=== PATIENT | female | born 1980 | race Caucasian/White ===

== ENCOUNTER 2019-10-07 13:13 | Emergency (ER) | payer SELFPAY ==
[2019-10-07 13:15] VITALS: BP 139/90; PULSE 111; RESP 15; TEMP 37.1; O2SAT 98; BMI 30.6
--- NOTE | 2019-10-07 13:35 | ED.DCSUM_ITS ---
History of Present Illness Chief Complaint: Abscess Informant: Patient Onset: Days Context: Gradual Onset Current Severity: Moderate Maximum Severity: Moderate Narrative: Patient presents with multiple small abscesses to her right axilla. There is a single abscess on her right side of her back that drained last evening. Patient denies fever or chills. 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 Past Medical History - Allergies and Home Meds Allergies/Adverse Reactions: Allergies No Known Allergies Allergy (Verified 10/07/19 13:19) Primary Care Physician: Care Physician,No Primary [Primary Care Provider] - Prior records reviewed: Yes Smoking Status: Current every day smoker Review of Systems General: Denies: Chills, Fever Eyes: Denies: Visual changes - bilaterally Cardiovascular: Denies: Chest pain Respiratory: Denies: Dyspnea, Cough Gastrointestinal: Denies: Abdominal pain, Nausea, Vomiting, Diarrhea Genitourinary: Denies: Dysuria Musculoskeletal: Denies: Arthralgias, Neck pain, Back pain Skin: Reports: Abscess Hematologic: Reports: Easy bruising Allergy: Reports: Uticaria Physical Exam Vital Signs/Narrative: Vital Signs Temp Pulse Resp BP Pulse Ox 10/07/19 13:15 98.7 F 111 H 15 139/90 H 98 Inital Vital Signs reviewed: Yes General: Well nourished, Well developed Head: Normocephalic ENT: Moist mucous membranes Neck: Supple Cardiovascular: Regular rate, Regular rhythm Respiratory: No distress Skin: - - Single cutaneous abscess to the right scapular region recently drained. No surrounding cellulitis. Patient has approximately 5 small, diameter approximately 4 mm, abscesses to the right axilla. No cellulitis. No fluctuance. Neurological: Alert, Oriented x3 Psychological: Normal affect Diagnostic/Tx/Re-eval - Medical Decision Making I advised the patient at this time there is no abscesses amenable to draining. She was started on oral antibiotics. She is encouraged use warm compresses. ED Disposition - Plan for ED Patient: Disposition: Home or Assisted Living Diagnosis: Cutaneous abscess of axilla Instructions: ABSCESS, Antiobiotic Treatment Only Prescriptions: Smz/Tmp Ds [Bactrim Ds] 1 tab PO BID #20 tab Transmission Status: Pending to [facility] Cephalexin [Keflex] 500 mg PO Q6 #40 cap Transmission Status: Pending to [facility] Referrals: Norris Mariscal MD [STAFF PHYSICIAN] - As Needed Matt Tolbert [[facility]] - 1-2 Weeks
[2019-10-07] MEDS: Smz/Tmp Ds Tablet 1 TABLET PO (13:42)
[2019-10-07] MEDS: Cephalexin 250 MG Capsule 500 MG PO (13:42)
== END 2019-10-07 13:59 | disposition home or self-care (01) ==
LOC: ED 13:41
PROVIDERS: Emergency Provider Emergency Medicine
DX: L02.411 Cutaneous abscess of right axilla (principal); F17.200 Nicotine dependence, unspecified, uncomplicated
CPT/HCPCS: 99283

== ENCOUNTER 2019-11-07 14:45 | Emergency (ER) | payer SELFPAY ==
[2019-11-07 14:48] VITALS: BP 117/84; PULSE 90; RESP 17; TEMP 36.8; O2SAT 100; BMI 28.8
--- NOTE | 2019-11-07 15:19 | ED.VISSUMM ---
- ER Visit Summary Date of Service: 11/07/19 Chief Complaint: Cough History of Present Illness: The patient is a 39 F who presents with cough and congestion that is been getting worse over the past 2 days. Patient admits to fevers and chills. Patient states her fever was up to 102 at home. Patient states she has general myalgias and aching in her back. Patient also admits to a headache. Patient also admits to some nausea, vomiting, and diarrhea. Patient denies any sputum production. Patient states she feels like her heart is racing at times. Patient denies any chest pain. Physical Examination: Vital signs are stable. Patient is afebrile. Patient is in no acute distress. Oral mucosa is pink and moist. Neck is supple. Trachea is midline. There is no JVD. Heart was regular rate and rhythm. Lungs showed diffuse rhonchi. There is good respiratory effort. Abdomen is soft. Bowel sounds are normal. There is no tenderness. Cranial nerves II through XII are intact. There are no focal motor or sensory deficits noted. Test Results: CBC and comprehensive metabolic profile was within normal limits. Influenza swab was positive for influenza B. PA and lateral chest x-ray was obtained. There is no acute cardiopulmonary process. This was interpreted by the radiologist and myself. Emergency Department Course and Treatment: Patient was given a DuoNeb aerosol here. Patient was given IV fluids, Zofran, and Tylenol. Patient was given a dose of Tamiflu here. Patient was given a prescription for Tamiflu. Patient was instructed to drink plenty of fluids. Patient was instructed to follow-up with her primary care physician in 5 to 7 days. Patient understood and was agreeable with the plan. All questions were answered. Disposition: Discharge home Impression: 1. Influenza B This note was generated with [employer] dictation software. It may contain incorrect words, spelling, and punctuation that were not noted in review of the chart prior to signing ED Disposition - Plan for ED Patient: Disposition: Home or Assisted Living Diagnosis: Influenza B Prescriptions: Oseltamivir Phosphate [Tamiflu] 75 mg PO BID #10 cap Prescription Printed Referrals: Care Physician,No Primary [Primary Care Provider] - Baljit Post III, MD [STAFF PHYSICIAN] - 5-7 Days
[2019-11-07] MEDS: Acetaminophen 500 MG Tablet 1000 MG PO (15:32)
[2019-11-07] MEDS: 0.9% Normal Saline 1,000 ML 1000 ML IV (15:32)
[2019-11-07] MEDS: Ipratropium/Albuterol Sulfate 3 ML AMPUL.NEB INHALATION (15:32)
[2019-11-07] MEDS: Ondansetron 4 MG/2 ML Vial IV (15:32)
[2019-11-07 15:35] VITALS: BP 117/84; PULSE 90; RESP 17; TEMP 36.8; O2SAT 100
[2019-11-07 15:36] LABS: Absolute Lymphocyte Count 1.29 X10^3/uL (0.83-4.51); Absolute Neutrophil Count 2.7 X10^3/uL (2.0-7.7); Basophil# 0.03 X10^3/uL; Basophil% 0.7 % (0-1); Eosinophil# 0.01 X10^3/uL; Eosinophils% 0.2 % (0-5); Hematocrit 39.7 % (37-47); Hemoglobin 12.8 g/dL (12.0-15.0); Lymphocyte # 1.29 X10^3/ul (4.0); Lymphocyte % 28.5 % (19-41); Mean Corp Hgb Conc 32.2 g/dL (32-36); Mean Corpuscular Hgb 29.6 pg (27.0-32.0); Mean Corpuscular Volume 91.7 fL (81-99); Mean Platelet Vol. 9.2 fl (6.2-12.0); Monocyte# 0.47 X10^3/uL; Monocyte% 10.4 % (0-10); NRBC Flagged by Analyzer 0 % (0-5); Neutrophil # 2.71 X10^3/uL (2.7-7.7); Neutrophil % 59.8 % (47-70); Platelet Count 230 K/mm3 (150-450); RBC Distribution Width CV 13.8 % (11.6-14.6); RBC Distribution Width SD 46.9 fl (35.1-43.9); Red Blood Count 4.33 M/mm3 (4.2-5.4); White Blood Count 4.5 K/mm3 (4.4-11.0)
[2019-11-07 15:37] VITALS: O2SAT 100
[2019-11-07 15:39] VITALS: PULSE 70; RESP 16
[2019-11-07 15:57] LABS: ALB/GLOB Ratio 0.8 RATIO (0.9-2.4); AST(SGOT) 36 U/L (15-37); Alanine Aminotransfer ALT/SGPT 45 U/L (13-56); Albumin, Serum 3.5 g/dL (3.2-5.0); Alkaline Phosphatase 81 U/L (45-117); Anion Gap 6 (5-15); BUN 7 mg/dL (7-18); BUN/Creat Ratio 8.3 RATIO (10-20); Calcium,Total 8.9 mg/dL (8.5-10.1); Chloride 105 mmol/L (98-107); Creatinine, Serum 0.84 mg/dL (0.55-1.02); EST Glomerular Filtration Rate 81 mL/min (>60); Est Glom Filt Rate - Afr Amer 98 mL/min (>60); Estimated Creatinine Clearance 82.51 ml/min; Globulin 4.3 g/dL (2.2-4.2); Glucose 91 mg/dL (74-106); Potassium 3.4 mmol/L (3.5-5.1); Protein, Total 7.8 g/dL (6.4-8.2); Sodium Level 139 mmol/L (136-145)
[2019-11-07 16:33] LABS: Mucous, Urine 0 SEEN /hpf (<or=2+); Red Blood Cells-Urine 0 SEEN /hpf (0-5)
--- NOTE | 2019-11-07 16:35 | RAD_ITS ---
STUDY: X-RAY CHEST REASON FOR EXAM: Female, 39 years old. FLU SYMPTOMS, N,V, D, FEVER AND CHILLS WITH COUGHING. TECHNIQUE: PA and lateral chest COMPARISON: None. FINDINGS: The lungs are clear and expanded. There is no demonstrated pleural abnormality. Normal size heart. Normal mediastinum and pieter. Normal visualized pulmonary arteries. Normal visualized aortic arch and descending thoracic aorta. Normal visualized thoracic spine. Normal visualized ribs, clavicles, and shoulders. There is no demonstrated abnormality of the visualized soft tissue structures of the upper abdomen. RAD/Chest PA and Lateral IMPRESSION: Normal x-ray examination of the chest. Electronically Signed: Ray Chairez, at 17:00 EST Tel , Service support ,
[2019-11-07 16:41] LABS: Color, Urine Yellow (Yellow); Glucose, Dipstick Normal (Normal); Ketone-Dipstick 15 mg/dl (Negative); Leukocyte Esterase-Dipstick Negative /ul (Negative); Nitrite-Dipstick Negative (Negative); Occult Blood-Urine 10 /ul (Negative); Protein-Dipstick Negative (Negative); Urine Bilirubin Dipstick Negative (Negative); Urine Clarity Sl. Cloudy (Clear); Urine Urobilinogen Normal (Normal)
[2019-11-07 17:24] LABS: Squamous Epithelial Cells - UA 10-25 SEEN /hpf (5-10); White Blood Cells 0-5 SEEN /hpf (0-5)
[2019-11-07 17:25] LABS: Bacteria 2+ /hpf (None Seen)
[2019-11-07 17:31] VITALS: BP 116/79; PULSE 59; RESP 16; TEMP 36.7; O2SAT 99
[2019-11-07] MEDS: Oseltamivir Phosphate 75 MG Capsule PO (18:31)
[2019-11-07 18:38] VITALS: BP 144/86; PULSE 58; RESP 14; O2SAT 98
== END 2019-11-07 18:38 | disposition home or self-care (01) ==
PROVIDERS: Emergency Provider Emergency Medicine
DX: J11.1 Influenza due to unidentified influenza virus with other respiratory manifestations (principal); Z72.0 Tobacco use
CPT/HCPCS: 71046; 80053; 81001; 85025; 87804; 94640; 96361; 96374; 99284; J7030; A4216; J2405

== ENCOUNTER 2019-11-11 14:55 | Emergency (ER) | payer SELFPAY ==
[2019-11-11 14:57] VITALS: BP 121/78; PULSE 109; RESP 17; TEMP 36.6; O2SAT 99; BMI 29.4
[2019-11-11 15:11] VITALS: BP 121/78; PULSE 109; RESP 17; TEMP 36.6; O2SAT 98
--- NOTE | 2019-11-11 15:17 | ED.VIS.GEN ---
History of Present Illness Chief Complaint: Abscess Informant: Patient Onset: Days - 3 days Current Severity: Moderate Maximum Severity: Moderate Narrative: Patient presents with what she was an abscess to the right lateral upper arm. She noted symptoms 2 and half days ago. Patient states she woke with a small open wound. She denies any known injury. She now has increased redness and swelling around the area. There is been no discharge or drainage from the wound. She denies fever or chills. Patient was seen here approximate month ago with multiple axillary small abscesses. She was given Bactrim and Keflex at that time and symptoms improved. - Past Medical History (1) Chronic back pain Status: Chronic Past Medical History - Allergies and Home Meds Allergies/Adverse Reactions: Allergies No Known Allergies Allergy (Verified 11/11/19 14:56) Primary Care Physician: Care Physician,No Primary [Primary Care Provider] - Prior records reviewed: Yes Smoking Status: Current every day smoker Review of Systems General: Denies: Chills, Fever Eyes: Denies: Visual changes - bilaterally ENT: Denies: Bilateral ear pain Cardiovascular: Denies: Chest pain Respiratory: Denies: Dyspnea, Cough Gastrointestinal: Denies: Abdominal pain, Nausea, Vomiting Musculoskeletal: Reports: Myalgias Skin: Reports: Wounds Neurological: Denies: Headache Allergy: Denies: Uticaria Physical Exam Vital Signs/Narrative: Vital Signs Temp Pulse Resp BP Pulse Ox 11/11/19 15:11 97.9 F 109 H 17 121/78 H 98 11/11/19 14:57 97.9 F 109 H 17 121/78 H 99 Inital Vital Signs reviewed: Yes General: Well nourished, Well developed Head: Normocephalic ENT: Moist mucous membranes Neck: Supple Cardiovascular: Regular rate, Regular rhythm, No murmurs Respiratory: No distress, CTA bilaterally Abdomen: Soft, Nontender Extremities: - - Small lesion of avulsed skin over the right lateral upper arm. This is surrounded by a 9 x 9 cm area of erythema and induration consistent with cellulitis. With palpation there is no fluctuance. There is no drainage from the open lesion. Skin: - - As above Neurological: Alert, Oriented x3 Psychological: - - Anxious Diagnostic/Tx/Re-eval - Medical Decision Making Patient's exam is consistent with cellulitis. There is no evidence of abscess. Area of erythema was outlined. She will be given prescriptions for Bactrim and Keflex along with a few [place] for breakthrough pain. She is referred to Dr. demarco to, next in the no doc list to establish primary care. She is given a good Rx card to help with her prescription drugs. She is given return instructions. ED Disposition - Plan for ED Patient: Disposition: Home or Assisted Living Diagnosis: Cellulitis Instructions: Cellulitis Prescriptions: Smz/Tmp Ds [Bactrim Ds] 1 tab PO BID #20 tab Transmission Status: [facility] to [facility] Cephalexin [Keflex] 500 mg PO Q6 #40 cap Transmission Status: Pending to [facility] Hydrocodone Bitart/Apap 5-325 [[place] 5MG-325MG] 1 tablet PO Q6H PRN PRN 3 Days #10 tablet PRN Reason: Pain Transmission Status: [facility] to [facility] Referrals: Daisy Boyd MD [STAFF PHYSICIAN] - 1-2 Weeks
[2019-11-11] MEDS: HYDROcodone Bitartrate/Apap 5/325 Tablet PO (15:36)
[2019-11-11] MEDS: Cephalexin 250 MG Capsule 500 MG PO (15:36)
[2019-11-11] MEDS: Smz/Tmp Ds Tablet 1 TABLET PO (15:36)
== END 2019-11-11 15:45 | disposition home or self-care (01) ==
PROVIDERS: Emergency Provider Emergency Medicine
DX: L03.113 Cellulitis of right upper limb (principal); F17.200 Nicotine dependence, unspecified, uncomplicated
CPT/HCPCS: 99283

== ENCOUNTER 2019-11-13 23:17 | Emergency (ER) | payer SELFPAY ==
[2019-11-13 23:18] VITALS: BP 131/55; PULSE 112; RESP 20; TEMP 36.8; O2SAT 99; BMI 29.2
--- NOTE | 2019-11-14 00:08 | ED.VIS.UPPEX ---
History of Present Illness Chief Complaint: Abscess Informant: Patient Onset: Days - 4 Context: Gradual Onset Timing: Continuous Quality of Pain: Aching Location: right upper arm Current Severity: Severe Maximum Severity: Severe Worsened by: palpation Relieved by: leaving alone Associated Symptoms: Negative for: Parasthesia, Weakness, Loss of Funtion Narrative: Spontaneous onset of tender swollen area right upper arm. Seen here several days ago, had a line drawn around it and started on antibiotics as it did not seem amenable to incision and drainage at the time. She was put on Keflex and Bactrim. It has worsened, and she states today it burst and a lot of purulent material came out of the center of it. - Past Medical History (1) Chronic back pain Status: Chronic Past Medical History - Allergies and Home Meds Allergies/Adverse Reactions: Allergies No Known Allergies Allergy (Verified 11/13/19 23:50) Primary Care Physician: Care Physician,No Primary [Primary Care Provider] - Lives: Spouse/ Significant Other Smoking Status: Current every day smoker Review of Systems General: Denies: Chills, Fever, Sweats Musculoskeletal: Reports: Extremity Pain Skin: Reports: Rash, Wounds Neurological: Denies: Headache, Weakness, Numbness Physical Exam Vital Signs/Narrative: Vital Signs Temp Pulse Resp BP Pulse Ox 11/13/19 23:18 98.2 F 112 H 20 H 131/55 H 99 General: Well nourished, Well developed Head: Normocephalic, Atraumatic Skin: Normal color, - - Abscess right arm, approximately 5 cm in diameter. There is a line drawn around an erythematous area, the erythema does not necessarily protrude beyond the line but it is not well-circumscribed. No lymphangitis. Open small center of wound, no active discharge. Neurological: Alert, Oriented x3, Cranial nerves II-XII grossly intact, Normal Strength, Normal Sensation, Normal Gait Psychological: - - anxious Diagnostic/Tx/Re-eval - Medical Decision Making Patient had a large abscess. See the procedure note. It was drained successfully. She is to continue her antibiotics, and return if worse. She was given some analgesics here. Clinically and hemodynamically she is well and not septic. I think she is tachycardic because of being very anxious. Procedures Procedure(s): Simple incision and drainage cutaneous abscess right upper arm. After verbal consent from the patient, prepped and draped with sterile isopropanol, locally anesthetized with 5 cc of plain 1% lidocaine, and incised with a #10 blade at the small area that appeared to have opened earlier. A large amount of purulent material was expressed. The cavity was deloculated. The patient had significant pain with this, and would not tolerate packing. It was irrigated from the inside out 20 cc of sterile saline gently. It was dressed with bacitracin. ED Disposition - Plan for ED Patient: Disposition: Home or Assisted Living Diagnosis: Cutaneous abscess of right upper extremity Instructions: ABSCESS, Incision and Drainage Referrals: Doctor,Your [STAFF PHYSICIAN] - 3-5 Days if not improving (or may return to the ER for reevaluation) Additional Instructions: Take your antibiotics until completely gone. Dressing changes as needed, may have to occur several times in first 24 hours.
[2019-11-14] MEDS: HYDROcodone Bitartrate/Apap 5/325 Tablet PO (00:42)
[2019-11-14 02:13] VITALS: BP 130/65; PULSE 108; RESP 22; O2SAT 97
== END 2019-11-14 02:14 | disposition home or self-care (01) ==
PROVIDERS: Emergency Provider Emergency Medicine
DX: L02.413 Cutaneous abscess of right upper limb (principal); F17.200 Nicotine dependence, unspecified, uncomplicated
CPT/HCPCS: 10060; 99283

== ENCOUNTER 2020-03-12 11:27 | Emergency (ER) | payer SELFPAY ==
[2020-03-12 11:28] VITALS: BP 134/81; PULSE 87; RESP 17; TEMP 36.7; O2SAT 98; BMI 30.2
--- NOTE | 2020-03-12 11:45 | ED.VIS.GEN ---
History of Present Illness Chief Complaint: Rash Informant: Patient Narrative: Patient presents with a rash that started a few days ago it is itchy it is on her face neck and left shoulder she also has a groin rash. She works in a hot environment which is making the rash worse, she also has a history of methamphetamines but denies any recent use. No fever chills cough or congestion it is somewhat itchy and she does scratch at it. Past Medical History - Allergies and Home Meds Allergies/Adverse Reactions: Allergies No Known Allergies Allergy (Verified 03/12/20 11:28) Primary Care Physician: Care Physician,No Primary [Primary Care Provider] - Smoking Status: Current every day smoker Review of Systems All systems negative except as indicated General: Denies: Fever Eyes: Denies: Visual changes - bilaterally Cardiovascular: Denies: Chest pain Musculoskeletal: Denies: Myalgias, Arthralgias Skin: Reports: Rash Neurological: Denies: Weakness Psych: Reports: Anxiety Hematologic: Denies: Easy bruising Physical Exam Vital Signs/Narrative: Vital Signs Temp Pulse Resp BP Pulse Ox 03/12/20 11:28 98.1 F 87 17 134/81 H 98 General: Well nourished, Well developed Head: Normocephalic, Atraumatic ENT: Moist mucous membranes Respiratory: No distress Abdomen: Soft, Nontender Back: Normal Inspection Extremities: No edema Skin: - - She has multiple areas of raised folliculitis on the chin, upper chest and shoulder as well as the upper part of her pubic area where she shaved her pubic hairs. There are no signs of drainable abscess. Diagnostic/Tx/Re-eval - Medical Decision Making Patient has a few areas of folliculitis, as well as irritation. No obvious abscesses to drain I will treat with antibiotics and I will give her Vistaril for home. Education was given, I told her not to shave her pubic hair, not to itch and not to use methamphetamines. ED Disposition - Plan for ED Patient: Disposition: Home or Assisted Living Diagnosis: Dermatitis Instructions: ED Folliculitis Prescriptions: Doxycycline 100 mg PO BID #20 cap Transmission Status: Pending to [facility] hydrOXYzine pamoate capsule [Vistaril] 50 mg PO TID PRN PRN #30 cap PRN Reason: Anxiety Transmission Status: Pending to [facility] Referrals: Care Physician,No Primary [Primary Care Provider] - 3-5 Days
== END 2020-03-12 12:21 | disposition home or self-care (01) ==
LOC: ED 12:15
PROVIDERS: Emergency Provider Emergency Medicine
DX: L30.9 Dermatitis, unspecified (principal); F17.200 Nicotine dependence, unspecified, uncomplicated
CPT/HCPCS: 99282

== ENCOUNTER 2020-07-29 10:09 | Emergency (ER) | payer SELFPAY ==
[2020-07-29 10:10] VITALS: BP 138/91; PULSE 95; RESP 20; TEMP 37.2; O2SAT 94; BMI 31.5
--- NOTE | 2020-07-29 10:27 | ED.VIS.GEN ---
History of Present Illness Chief Complaint: General Illness Informant: Patient Onset: Days Context: Gradual Onset Current Severity: Moderate Maximum Severity: Moderate Narrative: Patient presents with 3+ day history of pain to her ears as well as cough and congestion. 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 She had another outbreak and states that when her son looked in her ear it looks like she has a lesion in her ear canal. She is complaining of severe right ear pain as well as congestion and mild cough. She did recently travel to [place], only returning home 3 days ago. - Past Medical History (1) Hypertension Status: Chronic Past Medical History - Allergies and Home Meds Allergies/Adverse Reactions: Allergies No Known Allergies Allergy (Verified 07/29/20 10:12) Primary Care Physician: Care Physician,No Primary [Primary Care Provider] - Prior records reviewed: Yes Lives: With Family Smoking Status: Current every day smoker Review of Systems General: Denies: Chills, Fever Eyes: Denies: Visual changes - bilaterally ENT: Reports: Bilateral ear pain - Right greater than left, Rhinorrhea, Sore throat Cardiovascular: Denies: Chest pain Respiratory: Reports: Cough. Denies: Dyspnea Gastrointestinal: Denies: Vomiting, Diarrhea Genitourinary: Denies: Dysuria Musculoskeletal: Denies: Extremity Pain Skin: Reports: Wounds Neurological: Denies: Weakness, Parasthesia Hematologic: Denies: Easy bruising, Easy bleeding Allergy: Denies: Uticaria Physical Exam Vital Signs/Narrative: Vital Signs Temp Pulse Resp BP Pulse Ox 07/29/20 10:10 98.9 F 95 20 H 138/91 H 94 Inital Vital Signs reviewed: Yes General: Well nourished, Well developed Head: Normocephalic Eyes: Perrl, EOMI ENT: Moist mucous membranes, - - Red edematous lesion noted in the right ear canal. Left TM is clear. Neck: Supple Cardiovascular: Regular rhythm Respiratory: No distress, CTA bilaterally Abdomen: Soft, Nontender Back: Nontender Extremities: Nontender Skin: - - 3 small continuous abscesses noted over the chin area. No surrounding cellulitis. Neurological: Alert, Oriented x3 Psychological: Normal affect Diagnostic/Tx/Re-eval Chest X-Ray - ED: 1 View, Read by ED Physician, Normal, Heart, Lungs, Mediastinum - Medical Decision Making Chest x-ray normal per my review. Send out Covid test was obtained. Patient be written off work until results of this test are available. She is given Bactrim and Keflex p.o. as well as Cortisporin otic into the right ear to help with pain and inflammation. She will be referred to ENT for follow-up as needed. ED Disposition - Plan for ED Patient: Disposition: Home or Assisted Living Diagnosis: Cutaneous abscess, Acute viral syndrome Prescriptions: Smz/Tmp Ds [Bactrim Ds] 1 tab PO BID #20 tab [facility] Status: [facility] Cephalexin [Keflex] 500 mg PO Q6 #40 cap Transmission Status: [facility] Hydrocodone Bitart/Apap 5-325 [[place] 5MG-325MG] 1 tablet PO Q6H PRN PRN 3 Days #10 tablet PRN Reason: Pain Transmission Status: [facility] Referrals: Montez Story MD [STAFF PHYSICIAN] - 3-5 Days if not improving
--- NOTE | 2020-07-29 10:48 | RAD_ITS ---
STUDY: X-RAY CHEST REASON FOR EXAM: Female, 40 years old. ear, mouth, throat pain, cough, SOB, dizziness TECHNIQUE: Single AP portable view of the chest. COMPARISON: To 1220 FINDINGS: The lungs are clear and expanded. There is no demonstrated pleural abnormality. Normal size heart. Normal mediastinum and pieter. Normal visualized pulmonary arteries. Normal visualized aortic arch and descending thoracic aorta. Normal visualized thoracic spine. Normal visualized ribs, clavicles, and shoulders. There is no demonstrated abnormality of the visualized soft tissue structures of the upper abdomen. RAD/Chest 1 View (Portable) IMPRESSION: Normal x-ray examination of the chest. Electronically Signed: David Tanner MD at 10:56 EST Tel , Service support ,
[2020-07-29] MEDS: Smz/Tmp Ds Tablet 1 TABLET PO (10:53)
[2020-07-29] MEDS: Cephalexin 250 MG Capsule 500 MG PO (10:53)
[2020-07-29] MEDS: HYDROcodone Bitartrate/Apap 5/325 Tablet PO (10:53)
[2020-07-29] MEDS: Neomycin Sulfate/Polymyxin/Hc Susp 10 ML Bottle 4 DRP OTIC (10:53)
--- NOTE | 2020-07-29 11:22 | ED.RN ---
DISCHARGE INSTRUCTIONS GIVEN TO AND REVIEWED WITH PATIENT, PATIENT DENIES QUESTIONS OR CONCERNS AND VOICES UNDERSTANDING OF DISCHARGE INSTRUCTIONS. PT AMBULATES OUT OF ROOM WITHOUT DIFFICULTY.
== END 2020-07-29 11:23 | disposition home or self-care (01) ==
PROVIDERS: Emergency Provider Emergency Medicine
DX: H60.01 Abscess of right external ear (principal); B34.9 Viral infection, unspecified; F17.200 Nicotine dependence, unspecified, uncomplicated
CPT/HCPCS: 71045; 87635; 99283; U0003

== ENCOUNTER 2021-03-28 22:00 | Emergency (ER) | payer SELFPAY ==
[2021-03-28 22:01] VITALS: BP 141/107; PULSE 100; RESP 20; TEMP 36.1; O2SAT 92; BMI 29.7
--- NOTE | 2021-03-28 22:33 | EDS_ITS ---
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 She has been using for the last 14 years. Last use was approximate 5 days ago. Patient complains of itching all over and abdominal pain. She states she also uses marijuana. Denies any other drug use. [facility] Medical History Anxiety Asthma Depression Home Medications cephalexin 500 mg PO Q6 #40 cap 07/29/20 [Rx Last Taken Unknown] sulfamethoxazole-trimethoprim 1 tab PO BID #20 tab 07/29/20 [Rx Last Taken Unknown] hydroxyzine pamoate [Vistaril] 25 mg PO BID PRN #14 cap 03/29/21 [Rx Last Taken Unknown] Allergy/AdvReac Type Severity Reaction Status Date / Time No Known Allergies Allergy Verified 07/29/20 10:12 Social History Smoking Status: Current every day smoker tobacco type: cigarettes ROS ROS ED Constitutional Constitutional ED: Denies chills or fever(s) Eyes Eyes: Denies change in vision ENT ENT ED: Denies sore throat Cardiovascular Cardiovascular: Denies chest pain Respiratory/Chest Respiratory/Chest: Denies cough or dyspnea Gastrointestinal Gastrointestinal: Reports abdominal pain; Denies diarrhea, nausea or vomiting Genitourinary Genitourinary ED: Denies dysuria Musculoskeletal Musculoskeletal: Denies back pain Integumentary Reports other Details: Pruritus ; Denies rash Neurologic Neurologic: Denies headache(s) or weakness Psychiatric Psychiatric: Reports anxiety; Denies depression Endocrine Endocrinology: Denies polydipsia or polyuria Allergic/Immunologic Allergic/Immunologic ED: Denies urticaria EXAM Physical Exam Const Vital Signs: 03/28/21 22:01 03/29/21 00:47 Temperature 97.0 F L Temperature Source Temporal Pulse Rate 100 85 Respiratory Rate 20 H 16 Blood Pressure 141/107 H 124/90 H Blood Pressure Mean 118 101 Pulse Ox 92 98 Oxygen Delivery Method Room Air Room Air Positive well nourished and well developed General Appearance ED: well developed HEENT Reports normocephalic and head/scalp atraumatic Eyes PERRL and EOMs intact bilaterally Neck supple Chest Wall inspection of chest normal and palpation of chest normal Resp normal respiratory effort and clear to auscultation bilaterally Cardio regular rate and regular rhythm GI Palpation: soft Back/Spine no CVA tenderness Extremity normal to inspection Neuro oriented x3 and no sensory deficits noted Sensorium / Orientation: alert Motor Exam: strength 5/5 throughout Psych mental status grossly normal Skin no rashes or lesions noted MDM MDM MDM Narrative Medical decision making narrative: Patient was given a small dose of Ativan and Vistaril. Labs were obtained. Lab Data Attestation: I reviewed the patient's lab results. Labs: Laboratory Results - last 24 hr 03/28/21 03/28/21 03/28/21 22:22 22:22 22:50 WBC 8.7 RBC 4.16 L Hgb 12.5 Hct 37.6 MCV 90.4 MCH 30.0 MCHC 33.2 RDW Std Deviation 48.0 H RDW Coeff of Екатерина 14.5 Plt Count 330 MPV 9.6 Immature Gran % (Auto) 0.100 Neut % (Auto) 46.2 L Lymph % (Auto) 42.8 H [place] % (Auto) 6.9 Eos % (Auto) 3.2 Baso % (Auto) 0.8 Absolute Neuts (auto) 4.0 Absolute Lymphs (auto) 3.73 Nucleated RBC % 0 Sodium Potassium Chloride Carbon Dioxide Anion Gap BUN Creatinine Estim Creat Clear Calc Est GFR (MDRD) Af Amer Est GFR (MDRD) Non-Af BUN/Creatinine Ratio Glucose Calcium Total Bilirubin Direct Bilirubin AST ALT Alkaline Phosphatase Total Protein Albumin Globulin Serum , Qual Urine Color Yellow Urine Clarity Clear Urine pH 5.0 Ur Specific [place] 1.025 Urine Protein Negative Urine Glucose (UA) Normal Urine Ketones 5 H Urine Occult Blood Negative Urine Nitrite Negative Urine Bilirubin Negative Urine Urobilinogen Normal Ur Leukocyte Esterase Negative Urine RBC 0 SEEN Urine WBC 0 SEEN Ur Squamous Epith Cells 0 SEEN Urine Bacteria 0 SEEN Urine Mucus 0 SEEN Urine Opiates Screen NEGATIVE Urine Methadone Screen NEGATIVE Ur Barbiturates Screen NEGATIVE Ur Phencyclidine Scrn NEGATIVE Ur Amphetamines Screen NEGATIVE U Methamphetamin-MDMA NEGATIVE U Benzodiazepines Scrn NEGATIVE Urine Cocaine Screen NEGATIVE U Cannabinoids Screen POSITIVE H Ur Drug Screen Comment Ethyl Alcohol 03/28/21 03/28/21 03/28/21 22:50 22:50 22:50 WBC RBC Hgb Hct MCV MCH MCHC RDW Std Deviation RDW Coeff of Екатерина Plt Count MPV Immature Gran % (Auto) Neut % (Auto) Lymph % (Auto) [place] % (Auto) Eos % (Auto) Baso % (Auto) Absolute Neuts (auto) Absolute Lymphs (auto) Nucleated RBC % Sodium 141 Potassium 3.7 Chloride 109 H Carbon Dioxide 27.0 Anion Gap 5 BUN 10 Creatinine 0.73 Estim Creat Clear Calc 94.02 Est GFR (MDRD) Af Amer 115 Est GFR (MDRD) Non-Af 95 BUN/Creatinine Ratio 13.8 Glucose 87 Calcium 8.2 L Total Bilirubin 0.20 Direct Bilirubin 0.06 AST 17 ALT 27 Alkaline Phosphatase 75 Total Protein 6.8 Albumin 3.2 Globulin 3.6 Serum , Qual NEGATIVE Urine Color Urine Clarity Urine pH Ur Specific [place] Urine Protein Urine Glucose (UA) Urine Ketones Urine Occult Blood Urine Nitrite Urine Bilirubin Urine Urobilinogen Ur Leukocyte Esterase Urine RBC Urine WBC Ur Squamous Epith Cells Urine Bacteria Urine Mucus Urine Opiates Screen Urine Methadone Screen Ur Barbiturates Screen Ur Phencyclidine Scrn Ur Amphetamines Screen U Methamphetamin-MDMA U Benzodiazepines Scrn Urine Cocaine Screen U Cannabinoids Screen Ur Drug Screen Comment Ethyl Alcohol < 3.0 Treatment and Re-Evaluation Comments:: I did speak with social work. They do not know of any inpatient det ox programs available for meth. [facility] does have a treatment program and patient was given a brochure about this. On repeat evaluation she does feel improved. She is given a prescription for Vistaril. She is encouraged to follow-up with [facility]. Discharge Plan Triage Chief Complaint: Substance Abuse ED Provider: Brandy Palomino Dx/Rx/DC Orders Clinical Impression: Withdrawal from methamphetamine Instructions: ED Drug Abuse Prescriptions: New hydroxyzine pamoate [Vistaril] 25 mg capsule 25 mg PO BID PRN (Reason: itching) Qty: 14 RF: 0 No Action sulfamethoxazole-trimethoprim 1 TABLET tablet 1 tab PO BID Qty: 20 RF: 0 cephalexin 500 MG capsule 500 mg PO Q6 Qty: 40 RF: 0 Primary Care Provider: Care Physician,No Primary Referrals: Care Physician,No Primary [Primary Care Provider] - [facility] [STAFF PHYSICIAN] - As soon as possible Disposition Disposition: Home, Self Care Discharge Date/Time: 03/29/21 00:59
[2021-03-28 22:41] LABS: Bacteria 0 SEEN /hpf (None Seen); Mucous, Urine 0 SEEN /hpf (<or=2+); Red Blood Cells-Urine 0 SEEN /hpf (0-5); Squamous Epithelial Cells - UA 0 SEEN /hpf (5-10); White Blood Cells 0 SEEN /hpf (0-5)
[2021-03-28 22:43] LABS: Color, Urine Yellow (Yellow); Glucose, Dipstick Normal (Normal); Ketone-Dipstick 5 mg/dl (Negative); Leukocyte Esterase-Dipstick Negative /ul (Negative); Nitrite-Dipstick Negative (Negative); Occult Blood-Urine Negative /ul (Negative); Protein-Dipstick Negative (Negative); Specific Gravity, Urine 1.025 (1.002-1.030); Urine Bilirubin Dipstick Negative (Negative); Urine Clarity Clear (Clear); Urine Urobilinogen Normal (Normal)
--- NOTE | 2021-03-28 22:44 | CM.ED ---
Addendum entered by Reshma Wylie 03/28/21 22:49: This note was entered in error. Disregard note Reshma Galvin Original Note: HECTOR Note Referral Source: MD Referral Reason : Meth detox SW met with patient in her room. Patient's visitor said that patient is on probation. Patient was advised that [facility] doesn't detox from meth. Patient got agitated and said you aren't treating me.. . Patient said why don't you detox meth. your not doing anything for me.. SW attempted to provide support however, patient was irritable and agitated. Patient's visitor said that patient is not linked with [facility]. Patient said [facility] told me to come here.. why did they tell me to come here. SW again reiterated that [facility] does not do meth detox. Patient was provided handout on services through [facility]. SW also provided phone number for treatment navigator. Plan: Patient was provided information on [facility]. Reshma GALVIN
[2021-03-28] MEDS: LORazepam 2 MG/ML Syringe 0.5 MG IV (22:49)
[2021-03-28] MEDS: 0.9% Normal Saline 1,000 ML 1000 ML IV (22:49)
[2021-03-28] MEDS: hydrOXYzine PAM 25 MG Capsule PO (22:51)
--- NOTE | 2021-03-28 22:51 | CASEMGMT ---
HECTOR Note HECTOR Referral Source: Reason: meth detox SW went into room. Patient reports [facility] told her to come here. Patient said that why would they say to come here if you don't do detox. Patient got irritated and upset. Patient inquired as to why [facility] doesn't provided meth detox. Patient is on probation. Patient is not linked with [facility]. HECTOR provided patient with folder on [facility] services and also information on treatment navigator. MD updated. Patient is getting medication to assist with treatment. Plan: Follow up with [facility] Wyl[facility]
[2021-03-28 23:02] LABS: Amphetamine Urine VISTA NEGATIVE (<1000 ng/mL); Barbiturate Urine VISTA NEGATIVE (< 200 ng/mL); Benzodiazepine Urine VISTA NEGATIVE (< 200 ng/mL); Cocaine Urine VISTA NEGATIVE (< 300 ng/mL); Ecstacy Urine VISTA NEGATIVE (< 500 ng/mL); Methadone Urine VISTA NEGATIVE (< 300 ng/mL); PCP Urine VISTA NEGATIVE (< 25 ng/mL); THC Urine VISTA POSITIVE (< 50 ng/mL); Vista UDS pH Range 5
[2021-03-28 23:03] LABS: Absolute Lymphocyte Count 3.73 X10^3/uL (0.83-4.51); Basophil# 0.07 X10^3/uL; Basophil% 0.8 % (0-1); Eosinophil# 0.28 X10^3/uL; Eosinophils% 3.2 % (0-5); Hematocrit 37.6 % (37-47); Hemoglobin 12.5 g/dL (12.0-15.0); Lymphocyte # 3.73 X10^3/ul (0.83-4.51); Lymphocyte % 42.8 % (19-41); Mean Corp Hgb Conc 33.2 g/dL (32-36); Mean Corpuscular Volume 90.4 fL (81-99); Mean Platelet Vol. 9.6 fl (6.2-12.0); Monocyte% 6.9 % (0-10); NRBC Flagged by Analyzer 0 % (0-5); Neutrophil # 4.03 X10^3/uL (2.7-7.7); Neutrophil % 46.2 % (47-70); Platelet Count 330 K/mm3 (150-450); RBC Distribution Width CV 14.5 % (11.6-14.6); Red Blood Count 4.16 M/mm3 (4.2-5.4); White Blood Count 8.7 K/mm3 (4.4-11.0)
[2021-03-28 23:14] LABS: Internal QC Validated? YES +Cl - CLEAR BKGD; Pregnancy, Serum, hCG Quali. NEGATIVE Negative
[2021-03-28 23:20] LABS: AST(SGOT) 17 U/L (15-37); Alanine Aminotransfer ALT/SGPT 27 U/L (13-56); Albumin, Serum 3.2 g/dL (3.2-5.0); Alkaline Phosphatase 75 U/L (45-117); Anion Gap 5 (5-15); BUN 10 mg/dL (7-18); BUN/Creat Ratio 13.8 RATIO (10-20); Bilirubin, Direct 0.06 mg/dL (0.00-0.30); Calcium,Total 8.2 mg/dL (8.5-10.1); Chloride 109 mmol/L (98-107); Creatinine, Serum 0.73 mg/dL (0.55-1.02); EST Glomerular Filtration Rate 95 mL/min (>60); Est Glom Filt Rate - Afr Amer 115 mL/min (>60); Estimated Creatinine Clearance 94.02 ml/min; Globulin 3.6 g/dL (2.2-4.2); Glucose 87 mg/dL (74-106); Potassium 3.7 mmol/L (3.5-5.1); Protein, Total 6.8 g/dL (6.4-8.2); Sodium Level 141 mmol/L (136-145)
[2021-03-28 23:27] LABS: Alcohol, Blood (Medical)-Serum < 3.0 mg/dL
[2021-03-29 00:47] VITALS: BP 124/90; PULSE 85; RESP 16; O2SAT 98
== END 2021-03-29 00:59 | disposition home or self-care (01) ==
PROVIDERS: Emergency Provider Emergency Medicine
DX: F15.23 Other stimulant dependence with withdrawal (principal); F17.210 Nicotine dependence, cigarettes, uncomplicated; F12.10 Cannabis abuse, uncomplicated
CPT/HCPCS: 80048; 80076; 80307; 81001; 82077; 84703; 85025; 96374; 99284; J7030

== ENCOUNTER → 2023-01-12 | Outpatient (CLI) | payer OTHER, MEDICAID, SELFPAY ==
--- NOTE | 2023-01-12 07:24 | BI_ITS ---
MAMMOGRAPHY - BILATERAL SCREENING REASON FOR EXAM: Female, 42 years old. Routine annual screening examination. PERTINENT HISTORY: Non-contributory. TECHNIQUE: Digital bilateral breast narcisa (3D mammographic acquisition) in the CC and MLO projections. 2-D mediolateral oblique (MLO) and craniocaudad (CC) views of both breasts were obtained. CAD: Full Field Digital Mammography with Computer Added Detection was performed. COMPARISON: None. Baseline examination. FINDINGS: Breast Composition: There are scattered areas of fibroglandular density. There are no dominant masses or suspicious calcifications. Small benign-appearing bilateral axillary lymph nodes. No other significant abnormalities are identified. BI/SCRN MAMM (CAD)W/NARCISA BILAT IMPRESSION: Negative screening mammogram. Yearly followup mammogram recommended. (A) ASSESSMENT CATEGORY: BIRADS Category 1: Negative. A letter regarding these results will be sent to the patient by the facility within 30 days. Approximately 10% of breast cancers are not detected by mammography. A normal mammogram should not delay biopsy of a clinically suspicious abnormality. [id number] Electronically Signed: Jaron Cano MD at 9:11 EDT ,
== END | disposition home or self-care (01) ==
LOC: OPBI 07:21
PROVIDERS: PCP Nurse Practitioner Women's Health; Referring Provider Nurse Practitioner Women's Health; Visit Provider Nurse Practitioner Women's Health
DX: Z12.31 Encounter for screening mammogram for malignant neoplasm of breast (principal)
CPT/HCPCS: 77063; 77067

== ENCOUNTER 2023-02-25 14:00 | Outpatient (RCR) | payer OTHER, MEDICAID, SELFPAY ==
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
--- NOTE | 2023-02-11 09:32 | HP.PTREVAL ---
Dr. Meet Garcia, DPM, It has been my pleasure to treat UNRULY ALEMAN over the last 10 visits for R PFitis, PTT tendonitis, ankle pain. Please see the progress note below for an update on the physical therapy plan of care! Subjective: Better depending on physical activity at work. No pain today but she has been off for 3 days. 2/10 on off days typically. Work days if on feet and platform alot is 9/10. Sometimes it keeps her up at night.Swells up. Wearing brace allt he time. To doctor on 02/28/23. May get a custom brace at that visit. Doing YTB at home, GTB for PF 2x10 daily. Overall not as stiff and tight but still painful with activity, feels looser. Feels better for a couplke hours after sessions. Objective/Function: Good AROM DF and PF today although painful at end ranges and with OP, inv and eversion R still limited to 12 and 20 degrees. Strength is 3+ inv/ev with pain and 4+ Df without pain and 4 PF without pain today. Able to heel raise today without pain. Still has R antalgia in gait and avoids pushoff. Is doing better today as she has been off work for 3 days, will go back next Tuesday. Progressing slowly. Plan Plan: continue manual with aggressive rOM focussing on inv and EV, progress strength and proprioception ex to tolerance. Balance/Gait/Functional tests - Balance/Special Test Scores Lower Extremity Functional Score: 47 Goals Goal 1:: Pain in R ankle and foot 505 better at 4/10 at worst. Goal Time Frame: 4-6 Weeks Goal Progress: Progressing Goal 2:: I management of condition with ex stretch and strengthen/activitiy modifciaiton Goal Time Frame: 4-6 Weeks Goal Progress: Progressing Goal 3:: LEFS score 45 Goal Time Frame: 4-6 Weeks Goal Progress: Goal Met Goal 4:: Patient work without pain greater than 4/10 Goal Time Frame: 4-6 Weeks Goal Progress: Not Progressing Anticipated Interventions Patient/Client Instruction: Educate patient on: Condition, Plan of Care For the Purpose of:: To decrease pain, To decrease swelling/inflammation, To increase ROM, To improve nutrient delivery to tissue, To improve muscle performance and motor function Therapeutic Exercise to Include: Strength training, Balance training, Flexibilty training, Passive ROM, Active ROM For the Purpose of:: To decrease pain, To decrease swelling/inflammation, To increase ROM, To improve nutrient delivery to tissue Manual Therapy Techniques to Include: Mobilization, Passive ROM, Soft tissue mobilization For the Purpose of:: To decrease pain, To decrease swelling/inflammation, To increase ROM, To improve ability of physical actions for home/community/work/leisure, To improve gait and locomotor functions TENS: Yes Cryotherapy (ice pack, ice massage): Yes For the Purpose of:: To decrease pain Please do not hesitate to contact me at [phone] by phone or if you have questions or concerns regarding this new plan of care! Sincerely, Jair Sears, DPT, OCS, CSCS
--- NOTE | 2023-02-25 14:43 | HP.PTDCSUM ---
It has been my pleasure to treat UNRULY ALEMAN referred by KARLA CrossM, with the diagnosis of R PFitis, PTT tendonitis, ankle pain for a total of 14 visit(s). Discharge Date: 02/25/23 Please see the following information for a summary of their discharge status. Subjective: Work causes pain. More work = more pain. Better on non work days. Pain 8/10 on work days and then slowly gets to no pain when not working multiple days. HEP : going OK. [facility] ee doctor tuesday and try to get custom brace. Not a whole lot more to do. R foot Pain Intensity (Out of 10): 4 % Improvement: 25 Objective/Function: Max tender medial adn lateral R ankle. Limited arom inv and eversion and hurts to move passivley. DF is 3 degrees adn not painful unless OP. Walking with antalgia avoiding push off on R. Unable to heel raise comfortably. Pt not coming along acceptably and work is the main thing keeping her flared up. Goal 1:: Pain in R ankle and foot 505 better at 4/10 at worst. Goal Progress: 25% better, 8/10 Goal 2:: I management of condition with ex stretch and strengthen/activitiy modifciaiton Goal Progress: Goal Met Goal 3:: LEFS score 45 Goal Progress: Not Progressing Goal 4:: Patient work without pain greater than 4/10 Goal Progress: Not Progressing Plan: To doctor for other options. D/c. continue HEP Discharge Comments: To schedule with doctor. If there are questions or concerns regarding this patient's physical therapy, please feel free to call me at [phone]. Thank you for the referral of this patient. Sincerely, Jair Sears, DPT, OCS, CSCS Balance/Gait/Functional tests - Balance/Special Test Scores Lower Extremity Functional Score: 32
== END 2023-02-25 19:00 | disposition home or self-care (01) ==
LOC: PT 14:00
PROVIDERS: PCP Nurse Practitioner Women's Health; Referring Provider Student in an Organized Health Care Education/Training Program; Visit Provider Student in an Organized Health Care Education/Training Program
DX: M72.2 Plantar fascial fibromatosis (principal); M76.821 Posterior tibial tendinitis, right leg; M93.271 Osteochondritis dissecans, right ankle and joints of right foot
CPT/HCPCS: 97014; 97110; 97140; 97162; 97164; 97530; G0283

== ENCOUNTER → 2023-03-01 | Outpatient (CLI) | payer MEDICAID, SELFPAY | END | disposition home or self-care (01) | LOC: RAD 11:40 | PROVIDERS: PCP Nurse Practitioner Family; Referring Provider Nurse Practitioner Family; Visit Provider Nurse Practitioner Family | DX: R05.3 Chronic cough (principal) ==

== ENCOUNTER → 2023-03-01 | Outpatient (CLI) | payer OTHER, MEDICAID, SELFPAY ==
--- NOTE | 2023-03-01 11:00 | RAD_ITS ---
INDICATION: COUGH EXAMINATION/TECHNIQUE: X-RAY - XR Chest 2 Views COMPARISON: FINDINGS: LINES/DEVICES: None. LUNGS: No consolidation, edema or effusion. No pneumothorax. MEDIASTINUM AND CARDIOVASCULAR STRUCTURES: Cardiac silhouette not enlarged. Central airways and mediastinal contour are unremarkable. BONES AND SOFT TISSUES: Unremarkable. RAD/Chest PA and Lateral IMPRESSION: No radiographic evidence of acute cardiopulmonary disease. Electronically Signed: Anderson Rosario DO at 20:54 EDT ,
== END | disposition home or self-care (01) ==
LOC: RAD 10:59
PROVIDERS: PCP Nurse Practitioner Family; Referring Provider Nurse Practitioner Family; Visit Provider Nurse Practitioner Family
DX: R05.3 Chronic cough (principal)
CPT/HCPCS: 71046

== ENCOUNTER → 2023-03-09 | Outpatient (CLI) | payer OTHER, MEDICAID, SELFPAY ==
--- NOTE | 2023-03-10 09:45 | PFT ---
INTRODUCTION: The patient is a 42-year-old female that presents for pulmonary function studies secondary to a diagnosis of asthma. Respiratory therapy reported good patient effort. Bronchodilators were used during testing. INTERPRETATION: Forced expiration spirometry demonstrates no evidence of a large airways obstructive ventilatory defect. There was no significant response to aerosolized bronchodilators. Spirograms are of good quality and plateau normally. Body plethysmography was performed and revealed lung volumes to be within normal limits. Diffusing capacity by single breath CO was also within normal limits. IMPRESSION: Grossly normal pulmonary function studies.
== END | disposition home or self-care (01) ==
LOC: PSN 09:02
PROVIDERS: Referring Provider Nurse Practitioner Family; Visit Provider Nurse Practitioner Family
DX: J45.909 Unspecified asthma, uncomplicated (principal)
CPT/HCPCS: 94060; 94726; 94729

== ENCOUNTER → 2023-04-26 | Outpatient (CLI) | payer OTHER, MEDICAID, SELFPAY | END | disposition home or self-care (01) | LOC: SL 20:12 | PROVIDERS: Referring Provider Nurse Practitioner Family; Visit Provider Nurse Practitioner Family | DX: G47.10 Hypersomnia, unspecified (principal) | CPT/HCPCS: 95810 ==

== ENCOUNTER → 2023-07-20 | Outpatient (CLI) | payer OTHER, SELFPAY ==
[2023-07-20 17:13] LABS: Hemoglobin 12.9 g/dL (12.0-15.0); Mean Corp Hgb Conc 33.1 g/dL (32-36); Mean Corpuscular Hgb 30.9 pg (27.0-32.0); Mean Corpuscular Volume 93.5 fL (81-99); Mean Platelet Vol. 11.3 fl (6.2-12.0); Platelet Count 206 K/mm3 (150-450); RBC Distribution Width CV 13.8 % (11.6-14.6); Red Blood Count 4.17 M/mm3 (4.2-5.4); White Blood Count 9.1 K/mm3 (4.4-11.0)
[2023-07-20 18:11] LABS: ALB/GLOB Ratio 0.8 RATIO (0.9-2.4); AST(SGOT) 17 U/L (15-37); Alanine Aminotransfer ALT/SGPT 33 U/L (13-56); Albumin, Serum 3.5 g/dL (3.2-5.0); Alkaline Phosphatase 77 U/L (45-117); Anion Gap 3 (5-15); BUN 13 mg/dL (7-18); Calcium,Total 8.6 mg/dL (8.5-10.1); Chloride 112 mmol/L (98-107); Creatinine, Serum 0.76 mg/dL (0.55-1.02); EST Glomerular Filtration Rate 89 mL/min (>60); Est Glom Filt Rate - Afr Amer 107 mL/min (>60); Globulin 4.4 g/dL (2.2-4.2); Glucose 93 mg/dL (74-106); Iron 52 ug/dL (50-170); Iron Binding Capacity,Total 373 ug/dL (250-450); PERCENT IRON SATURATION 13.9 % (15.0-55.0); Potassium 3.7 mmol/L (3.5-5.1); Protein, Total 7.9 g/dL (6.4-8.2); Sodium Level 140 mmol/L (136-145); Thyroid Stim Hormone (TSH) 2.34 uIU/mL (0.358-3.74)
[2023-07-20 18:19] LABS: Vitamin B12 403 pg/mL (211-911)
[2023-07-25 11:08] LABS: Vitamin D 1,25-Dihydroxy 75.2 pg/mL (24.8-81.5)
== END | disposition home or self-care (01) ==
LOC: LAB 16:12
PROVIDERS: Visit Provider Nurse Practitioner Family
DX: G25.81 Restless legs syndrome (principal)
CPT/HCPCS: 36415; 80053; 82607; 82652; 83540; 83550; 84443; 85027